=== PATIENT | male | born 1985 | race Caucasian/White ===

== ENCOUNTER → 2018-03-08 | Outpatient (CLI) | payer OTHER | END | disposition home or self-care (01) | LOC: HKI 10:22 | DX: M23.222 Derangement of posterior horn of medial meniscus due to old tear or injury, left knee (principal) | CPT/HCPCS: Z7500 ==

== ENCOUNTER 2018-07-07 10:18 | Day surgery (SDC) | payer OTHER ==
[2018-07-07] MEDS ORDERED: LACTATED RINGER'S 1,000 ML IV (11:00)
[2018-07-07] MEDS ORDERED: LIDOCAINE 1% (STERILE-PAK) 30 ML INJ (12:42)
[2018-07-07] MEDS ORDERED: ROPIVACAINE 0.5 % 30 ML VIAL (12:42)
[2018-07-07] MEDS ORDERED: morphine SULFATE/PF (10 MG/10 ML) INJ (12:43)
[2018-07-07] MEDS ORDERED: BACITRACIN/POLYMYXIN 28.35 GM OINT TOP (12:43)
[2018-07-07] MEDS ORDERED: MIDAZOLAM 1 MG/ML 2 ML INJ (13:15)
[2018-07-07] MEDS ORDERED: LIDOCAINE 2% (SDV) 5 ML INJ (13:15)
[2018-07-07] MEDS ORDERED: PROPOFOL 20 ML (13:15)
[2018-07-07] MEDS ORDERED: CEFAZOLIN 1 GM INJ (13:24)
[2018-07-07] MEDS ORDERED: morphine 2 MG INJ IV (13:30)
[2018-07-07] MEDS ORDERED: KETOROLAC 30 MG INJ (13:38)
[2018-07-07] MEDS ORDERED: FENTAnyl 50 MCG/ML VIAL (13:45)
[2018-07-07] MEDS ORDERED: HYDROmorphONE 1 MG/5 ML IV SYRINGE IV (15:00)
== END 2018-07-07 17:15 | disposition home or self-care (01) ==
LOC: SDS 10:18
DX: M22.42 Chondromalacia patellae, left knee (principal); S83.242A Other tear of medial meniscus, current injury, left knee, initial encounter; F17.210 Nicotine dependence, cigarettes, uncomplicated; X58.XXXA Exposure to other specified factors, initial encounter
CPT/HCPCS: 29882